=== PATIENT | female | born 2000 | race Two or more races ===

== ENCOUNTER → 2021-09-21 | Outpatient (CLI) | payer MEDICAID ==
[2021-09-21 11:57] LABS: Basophils # (auto) 0 10 ^3/uL (0-0.2); Eosinophils # (auto) 0.1 10 ^3/uL (0-0.8); Monocytes # (auto) 0.6 10 ^3/uL (0-1.3)
[2021-09-21 12:01] LABS: Basophils % (auto) 0.3 % (0.0-2.0); Eosinophils % (auto) 0.4 % (0.0-7.0); Hematocrit 38.3 % (36.0-46.0); Hemoglobin 12.8 g/dL (12.2-16.2); Lymphocytes # (auto) 3.1 10 ^3/uL (0.4-5.4); Lymphocytes % (auto) 22.7 % (10.0-50.0); Mean Corpuscular Hemoglobin 24.9 pg (28.0-32.0); Mean Corpuscular Hgb Conc. 33.3 g/dL (32.0-36.0); Mean Corpuscular Volume 74.8 fL (80.0-100.0); Monocytes % (auto) 4.2 % (0.0-12.0); Neutrophils # (auto) 9.9 10 ^3/uL (1.6-8.6); Neutrophils % (auto) 72.4 % (37.0-80.0); Red Blood Cells 5.12 10^6/uL (4.0-5.20); Red Cell Distribution Width 14.6 % (11.8-14.3); White Blood Cell 13.6 10^3/uL (4.4-10.8)
[2021-09-21 12:34] LABS: Alcohol, Urine < 3.0 mg/dL (0-10); Amphetamine Screen, Urine NEGATIVE (NEGATIVE); Barbiturate Scree,Urine NEGATIVE (NEGATIVE); Benzodiazephine Screen, Urine NEGATIVE (NEGATIVE); Cannabinoid Screen, Urine POSITIVE (NEGATIVE); Cocaine Screen, Urine NEGATIVE (NEGATIVE); Opiate Scree,Urine NEGATIVE (NEGATIVE); Phencyclidine Screen, Urine NEGATIVE (NEGATIVE)
[2021-09-22 07:06] LABS: RPR Non Reactive (Non Reactive)
== END | disposition home or self-care (01) ==
LOC: LAB 11:12
PROVIDERS: ATTEND Obstetrics & Gynecology
DX: Z34.00 Encounter for supervision of normal first pregnancy, unspecified trimester (principal); Z31.430 Encounter of female for testing for genetic disease carrier status for procreative management; Z36.0 Encounter for antenatal screening for chromosomal anomalies; N39.0 Urinary tract infection, site not specified
CPT/HCPCS: 36415; 80307; 83021; 83036; 84112; 84702; 85025; 85660; 86592; 86703; 86762; 86850; 86900; 86901; 87086; 87340

== ENCOUNTER 2022-01-15 19:24 | Observation (INO) | payer MEDICAID ==
[~2022-01-15] VITALS: Ht 162.6 cm; Wt 106.6 kg
[2022-01-15] MEDS ORDERED: TERBUTALINE SULFATE 1 MG/ML 1ML VIAL SC SCH (20:45)
[2022-01-15] MEDS ORDERED: LACTATED RINGER'S 1,000 ML IV ONE (20:45)
[2022-01-15] MEDS ORDERED: BETAMETHASONE ACET (30mg/5ml) 5ml Vial 6mg/ml IM ONE (20:45)
[2022-01-15] MEDS ORDERED: LACTATED RINGER'S 1,000 ML IV SCH (20:45)
[2022-01-15 20:52] LABS: Urine Bacteria NONE SEEN /hpf (None Seen); Urine Blood Negative /uL (Negative); Urine Mucus FEW (None Seen); Urine Specific Gravity 1.026 (1.001-1.035); Urine WBC 1 /hpf (0 - 5)
[2022-01-15] MEDS ORDERED: ONDANSETRON HCL 4 MG/2 ML VIAL IV ONE (21:15)
[2022-01-16] MEDS ORDERED: NIFEdipine 10 MG CAP PO SCH
[2022-01-16] MEDS ORDERED: NIF10C PO (01:07)
[2022-01-16] MEDS ORDERED: PREN27TA7 OR (21:06)
== END 2022-01-16 01:44 | disposition home or self-care (01) ==
LOC: LDRP 19:24
PROVIDERS: ADMIT Obstetrics & Gynecology; ATTEND Obstetrics & Gynecology
DX: O60.03 Preterm labor without delivery, third trimester (principal); O62.9 Abnormality of forces of labor, unspecified; O21.2 Late vomiting of pregnancy; O26.893 Other specified pregnancy related conditions, third trimester; R42 Dizziness and giddiness; Z3A.30 30 weeks gestation of pregnancy; Z98.891 History of uterine scar from previous surgery
CPT/HCPCS: 36415; 59025; 76815; 81001; 81002; 87426; 94760; 96361; 96372; 96374; G0378; J0702; J2405; J3105; 96360

== ENCOUNTER 2022-01-16 20:29 | Observation (INO) | payer MEDICAID ==
[~2022-01-16] VITALS: Ht 162.6 cm; Wt 108.0 kg
[~2022-01-16 20:29] MED LIST: NIF10C PO
[2022-01-16] MEDS ORDERED: BETAMETHASONE ACET (30mg/5ml) 5ml Vial 6mg/ml IM ONE (21:00)
[2022-01-16] MEDS ORDERED: PREN27TA7 OR (21:06)
== END 2022-01-16 22:07 | disposition home or self-care (01) ==
LOC: LDRP 20:29
PROVIDERS: ADMIT Obstetrics & Gynecology Obstetrics; ATTEND Obstetrics & Gynecology Obstetrics
DX: O60.03 Preterm labor without delivery, third trimester (principal); Z3A.30 30 weeks gestation of pregnancy; Z88.0 Allergy status to penicillin
CPT/HCPCS: 59025; 81002; 94760; 96372; G0378

== ENCOUNTER 2022-01-17 16:28 | Observation (INO) | payer MEDICAID ==
[~2022-01-17] VITALS: Ht 162.6 cm; Wt 108.9 kg
[~2022-01-17 16:28] MED LIST changes: +PREN27TA7 OR
[2022-01-17 19:18] LABS: Basophils # (auto) 0 10 ^3/uL (0-0.2); Basophils % (auto) 0.1 % (0.0-2.0); Eosinophils # (auto) 0 10 ^3/uL (0-0.8); Eosinophils % (auto) 0.2 % (0.0-7.0)
[2022-01-17 19:19] LABS: Hematocrit 36.6 % (36.0-46.0); Hemoglobin 12.6 g/dL (12.2-16.2); Lymphocytes # (auto) 2.6 10 ^3/uL (0.4-5.4); Lymphocytes % (auto) 14.4 % (10.0-50.0); Mean Corpuscular Hemoglobin 24.2 pg (28.0-32.0); Mean Corpuscular Hgb Conc. 34.4 g/dL (32.0-36.0); Mean Corpuscular Volume 70.3 fL (80.0-100.0); Monocytes # (auto) 1.7 10 ^3/uL (0-1.3); Monocytes % (auto) 9.3 % (0.0-12.0); Neutrophils # (auto) 13.7 10 ^3/uL (1.6-8.6); Nucleated Red Blood Cells % 0.1 %; Red Cell Distribution Width 16.7 % (11.8-14.3)
[2022-01-17 19:36] LABS: Urine Bacteria FEW /hpf (None Seen); Urine WBC 1 /hpf (0 - 5)
[2022-01-17 19:36] LABS: Albumin 2.8 g/dL (3.4-5.0); Potassium 3.8 mmol/L (3.5-5.1)
[2022-01-17 19:37] LABS: Protein, Urine < 5 mg/dL (0.0-11.9)
[2022-01-17 19:40] LABS: BUN/Creatinine Ratio 12.8; Bilirubin, Total 0.2 mg/dL (0.2-1.0); Total Protein 6.7 g/dL (6.4-8.2); Uric Acid 4.4 mg/dL (2.6-6.0)
[2022-01-17 19:47] LABS: Creatinine, Urine 9 mg/dL (30.0-125.0)
[2022-01-17 19:53] LABS: Urine Specific Gravity 1.005 (1.001-1.035)
[2022-01-17 19:54] LABS: Urine Blood Negative /uL (Negative)
== END 2022-01-17 21:27 | disposition home or self-care (01) ==
LOC: LDRP 16:28 → UNDOADMOB 16:28 → LDRP 17:05 → UNDODISOB 21:27
PROVIDERS: ADMIT Obstetrics & Gynecology; ATTEND Obstetrics & Gynecology
DX: O26.893 Other specified pregnancy related conditions, third trimester (principal); R10.11 Right upper quadrant pain; R51.9 Headache, unspecified; R11.0 Nausea; O62.9 Abnormality of forces of labor, unspecified; Z3A.30 30 weeks gestation of pregnancy
CPT/HCPCS: 36415; 59025; 76700; 80053; 81001; 81002; 82570; 84156; 84550; 85025; 94760; G0378

== ENCOUNTER → 2022-03-15 | Outpatient (CLI) | payer MEDICAID ==
[2022-03-15 11:15] LABS: Basophils # (auto) 0.1 10 ^3/uL (0-0.2); Basophils % (auto) 0.8 % (0.0-2.0); Eosinophils # (auto) 0.1 10 ^3/uL (0-0.8); Hemoglobin 12.5 g/dL (12.2-16.2); Nucleated Red Blood Cells % 0.1 %; White Blood Cell 14.9 10^3/uL (4.4-10.8)
[2022-03-15 11:17] LABS: Eosinophils % (auto) 0.7 % (0.0-7.0); Hematocrit 36.3 % (36.0-46.0); Lymphocytes # (auto) 3.6 10 ^3/uL (0.4-5.4); Lymphocytes % (auto) 24.1 % (10.0-50.0); Mean Corpuscular Hemoglobin 23.7 pg (28.0-32.0); Mean Corpuscular Hgb Conc. 34.4 g/dL (32.0-36.0); Monocytes # (auto) 1.1 10 ^3/uL (0-1.3); Monocytes % (auto) 7.2 % (0.0-12.0); Neutrophils % (auto) 67.2 % (37.0-80.0); Red Blood Cells 5.25 10^6/uL (4.0-5.20); Red Cell Distribution Width 18.7 % (11.8-14.3)
[2022-03-16 07:06] LABS: RPR Non Reactive (Non Reactive)
== END | disposition home or self-care (01) ==
LOC: LAB 10:51
PROVIDERS: ATTEND Obstetrics & Gynecology
DX: Z34.80 Encounter for supervision of other normal pregnancy, unspecified trimester (principal); Z3A.00 Weeks of gestation of pregnancy not specified
CPT/HCPCS: 36415; 84112; 85025; 86592

== ENCOUNTER 2022-03-17 10:19 | Inpatient (IN) | payer MEDICAID ==
[2022-03-16 11:35] LABS: Basophils # (auto) 0 10 ^3/uL (0-0.2); Basophils % (auto) 0.2 % (0.0-2.0); Eosinophils # (auto) 0.1 10 ^3/uL (0-0.8); Monocytes # (auto) 0.7 10 ^3/uL (0-1.3); Nucleated Red Blood Cells % 0.2 %
[2022-03-16 11:37] LABS: Hematocrit 35.4 % (36.0-46.0); Hemoglobin 12.4 g/dL (12.2-16.2); Lymphocytes # (auto) 3.2 10 ^3/uL (0.4-5.4); Lymphocytes % (auto) 25.9 % (10.0-50.0); Mean Corpuscular Hgb Conc. 34.9 g/dL (32.0-36.0); Mean Corpuscular Volume 74.5 fL (80.0-100.0); Monocytes % (auto) 5.7 % (0.0-12.0); Neutrophils # (auto) 8.3 10 ^3/uL (1.6-8.6); Neutrophils % (auto) 67.2 % (37.0-80.0); Red Blood Cells 4.75 10^6/uL (4.0-5.20); Red Cell Distribution Width 18.5 % (11.8-14.3); White Blood Cell 12.3 10^3/uL (4.4-10.8)
[2022-03-16 11:38] LABS: Alcohol, Urine < 3.0 mg/dL (0-10); Amphetamine Screen, Urine NEGATIVE (NEGATIVE); Barbiturate Scree,Urine NEGATIVE (NEGATIVE); Benzodiazephine Screen, Urine NEGATIVE (NEGATIVE); Cannabinoid Screen, Urine NEGATIVE (NEGATIVE); Cocaine Screen, Urine NEGATIVE (NEGATIVE); Opiate Scree,Urine NEGATIVE (NEGATIVE); Phencyclidine Screen, Urine NEGATIVE (NEGATIVE)
[2022-03-16 11:40] LABS: Urine Bacteria NONE SEEN /hpf (None Seen); Urine Blood Negative /uL (Negative); Urine Mucus FEW (None Seen); Urine Specific Gravity 1.025 (1.001-1.035); Urine WBC <1 /hpf (0 - 5)
[2022-03-16 11:42] LABS: INR 0.88 (0.9-1.15); Partial Thromboplastin Time 26.5 sec (24.6-33.4)
[2022-03-16 11:44] LABS: Albumin 2.6 g/dL (3.4-5.0); BUN/Creatinine Ratio 20.4; Calcium 8.8 mg/dL (8.5-10.1); Potassium 3.9 mmol/L (3.5-5.1)
[2022-03-16 11:47] LABS: Bilirubin, Total 0.2 mg/dL (0.2-1.0); Total Protein 6.5 g/dL (6.4-8.2)
[~2022-03-17] VITALS: Ht 162.6 cm; Wt 113.4 kg
[2022-03-17 08:06] LABS: RPR Non Reactive (Non Reactive)
[2022-03-18] VITALS (13 sets, daily range): BP systolic 129–145; BP diastolic 62–96
[2022-03-18] MEDS ORDERED: LACTATED RINGER'S 1,000 ML IV ONE (04:15)
[2022-03-18] MEDS: LACTATED RINGER'S 1,000 ML IV SCH ×2 (05:33→19:18)
[2022-03-18] MEDS ORDERED: ceFAZolin 1GM/50ML 50 ML IV ONE (06:30)
[2022-03-18] MEDS ORDERED: CLINDAMYCIN 900MG IV 50 ML IV ONE (07:30)
[2022-03-18] MEDS: SODIUM CITR/CITRIC ACID ORAL SOLN 30 ML PO SCH ×3 (08:13→18:00)
[2022-03-18] MEDS ORDERED: HYDR-4902 PO (08:25)
[2022-03-18] MEDS ORDERED: DOCU-94 PO (08:25)
[2022-03-18] MEDS ORDERED: IBUP800T27 PO (08:25)
[2022-03-18] MEDS ORDERED: oxyTOCIN 10 UNIT/ML 10ML VIAL ONE (09:14)
[2022-03-18] MEDS ORDERED: ONDANSETRON HCL 4 MG/2 ML VIAL ONE (09:14)
[2022-03-18] MEDS ORDERED: MORPHINE SULF PF 5 MG/10 ML VIAL ONE (09:14)
[2022-03-18] MEDS ORDERED: fentaNYL CITRATE 100 MCG/2 ML VL ONE (09:14)
[2022-03-18] MEDS ORDERED: BUPIVACAINE/DEXTROSE MPF 0.75% 2 ML AMP IT ONE (09:14)
[2022-03-18] MEDS ORDERED: ePHEDrine SULFATE 50 MG/ML AMP ONE (09:14)
[2022-03-18] MEDS ORDERED: LACT. RINGERS/OXYTOCIN 20UNITS 1,000 ML IV ONE (09:30)
[2022-03-18] MEDS ORDERED: GUM (CHEWING) 1 GUM CHEW CHEW ONE (09:30)
[2022-03-18] MEDS ORDERED: ONDANSETRON HCL 4 MG/2 ML VIAL IV PRN ×3 (09:30→11:00)
[2022-03-18] MEDS ORDERED: FAMOTIDINE (10MG/ML) 2ML VL IV ONE (10:20)
[2022-03-18] MEDS ORDERED: KETOROLAC TROMETH 30 MG/ML 1ML VIAL IV PRN (11:00)
[2022-03-18] MEDS ORDERED: DexAMETHasone SOD PHOS 10MG/1ML VIAL INJ IV PRN (11:00)
[2022-03-18] MEDS ORDERED: FAMOTIDINE (10MG/ML) 2ML VL IV PRN (11:00)
[2022-03-18] MEDS ORDERED: NALBUPHINE HCL 10 MG/1ml INJECTION SUBCUT ONE (11:00)
[2022-03-18] MEDS ORDERED: NALOXONE HCL 0.4 MG/ML VIAL IV PRN ×2 (11:00)
[2022-03-18] MEDS ORDERED: diphenhdrAMINE HCL 50 MG/1 ML VL IV PRN (11:00)
[2022-03-18] MEDS ORDERED: KETOROLAC TROMETH 30 MG/ML 1ML VIAL IV ONE (11:00)
[2022-03-18] MEDS: ACETAMINOPHEN IV 1000 MG/100ML (10MG/ML) IV PRN ×2 (14:08→22:06)
[2022-03-18 14:21] LABS: Protein, Urine 11.5 mg/dL (0.0-11.9)
[2022-03-18] MEDS: CLINDAMYCIN 900MG IV 50 ML IV SCH (17:41)
[2022-03-18 21:11] LABS: Basophils # (auto) 0 10 ^3/uL (0-0.2); Basophils % (auto) 0.1 % (0.0-2.0); Eosinophils # (auto) 0.1 10 ^3/uL (0-0.8); Eosinophils % (auto) 0.4 % (0.0-7.0); Hemoglobin 10.8 g/dL (12.2-16.2)
[2022-03-18 21:13] LABS: Hematocrit 31.6 % (36.0-46.0); Lymphocytes # (auto) 2.4 10 ^3/uL (0.4-5.4); Mean Corpuscular Hemoglobin 23.6 pg (28.0-32.0); Mean Corpuscular Hgb Conc. 34.1 g/dL (32.0-36.0); Mean Corpuscular Volume 69.3 fL (80.0-100.0); Monocytes # (auto) 1.4 10 ^3/uL (0-1.3); Monocytes % (auto) 8.3 % (0.0-12.0); Neutrophils % (auto) 77.2 % (37.0-80.0); Nucleated Red Blood Cells % 0.2 %; Red Blood Cells 4.57 10^6/uL (4.0-5.20); Red Cell Distribution Width 18.3 % (11.8-14.3); White Blood Cell 16.8 10^3/uL (4.4-10.8)
[2022-03-19] VITALS (13 sets, daily range): BP systolic 102–145; BP diastolic 56–89
[2022-03-19] MEDS: CLINDAMYCIN 900MG IV 50 ML IV SCH (02:12)
[2022-03-19] MEDS: LACTATED RINGER'S 1,000 ML IV SCH ×2 (04:15→06:54)
[2022-03-19] MEDS ORDERED: HYDROcodone-ACET 5/325MG TAB PO PRN (05:45)
[2022-03-19] MEDS: SIMETHICONE 80 MG CHEWABLE TABLET PO SCH ×4 (05:52→22:24)
[2022-03-19 06:29] LABS: Basophils # (auto) 0.1 10 ^3/uL (0-0.2); Eosinophils # (auto) 0.1 10 ^3/uL (0-0.8); Eosinophils % (auto) 0.9 % (0.0-7.0); Hemoglobin 10.6 g/dL (12.2-16.2); Monocytes # (auto) 1.3 10 ^3/uL (0-1.3)
[2022-03-19 06:31] LABS: Basophils % (auto) 0.5 % (0.0-2.0); Hematocrit 31.3 % (36.0-46.0); Lymphocytes % (auto) 13.1 % (10.0-50.0); Mean Corpuscular Hemoglobin 24.1 pg (28.0-32.0); Mean Corpuscular Hgb Conc. 33.7 g/dL (32.0-36.0); Mean Corpuscular Volume 71.5 fL (80.0-100.0); Monocytes % (auto) 8.5 % (0.0-12.0); Neutrophils # (auto) 11.6 10 ^3/uL (1.6-8.6); Red Blood Cells 4.38 10^6/uL (4.0-5.20); Red Cell Distribution Width 18.7 % (11.8-14.3); White Blood Cell 15.1 10^3/uL (4.4-10.8)
[2022-03-19] MEDS ORDERED: ACETAMINOPHEN IV 1000 MG/100ML (10MG/ML) IV PRN (06:45)
[2022-03-19] MEDS ORDERED: CLINDAMYCIN 900MG IV 50 ML IV SCH (10:00)
[2022-03-19] MEDS: IBUPROFEN 800 MG TAB PO PRN (10:24)
[2022-03-19] MEDS: DOCUSATE CALCIUM 240 MG CAP PO SCH (10:24)
[2022-03-19] MEDS: DOCUSATE SOD 100 MG CAP PO SCH ×2 (10:24→22:24)
[2022-03-19] MEDS: HYDROcodone-ACET 5/325MG TAB PO PRN ×2 (17:37→22:24)
[2022-03-19] MEDS ORDERED: BISACODYL 10 MG RECT SUPP PR PRN (18:45)
[2022-03-20] MEDS: IBUPROFEN 800 MG TAB PO PRN (02:48)
[2022-03-20 03:07] VITALS: BP 143/77
[2022-03-20] MEDS: SIMETHICONE 80 MG CHEWABLE TABLET PO SCH (05:50)
[2022-03-20 07:15] VITALS: BP 127/77
[2022-03-20] MEDS: DOCUSATE SOD 100 MG CAP PO SCH (10:30)
[2022-03-20] MEDS: DOCUSATE CALCIUM 240 MG CAP PO SCH (10:30)
== END 2022-03-20 11:05 | disposition home or self-care (01) | DRG 540 ==
LOC: LDRP 03-18 04:05
PROVIDERS: ADMIT Obstetrics & Gynecology; ATTEND Obstetrics & Gynecology
PROC: 10D00Z1 Extraction of Products of Conception, Low, Open Approach (ICD-10-PCS; principal; 2022-03-18 09:22)
DX: O34.219 Maternal care for unspecified type scar from previous cesarean delivery (principal); O99.214 Obesity complicating childbirth; E66.01 Morbid (severe) obesity due to excess calories; Z20.822 Contact with and (suspected) exposure to COVID-19; Z37.0 Single live birth
CPT/HCPCS: 36415; 59025; 80053; 80307; 81001; 81002; 82570; 84156; 84550; 85025; 85610; 85730; 86592; 86850; 86900; 86901; 94760; 94762; 96360; 96361; 96365; 96366; G0378; J0131; J2405; J2590; J3490

== ENCOUNTER → 2022-04-14 | Outpatient (CLI) | payer MEDICAID ==
[~2022-04-14] MED LIST changes: +DOCU-94 PO; +HYDR-4902 PO; +IBUP800T27 PO
[2022-04-14 11:26] LABS: Urine Bacteria NONE SEEN /hpf (None Seen); Urine Blood Negative /uL (Negative); Urine Mucus FEW (None Seen); Urine Specific Gravity 1.027 (1.001-1.035); Urine WBC 4 /hpf (0 - 5)
== END | disposition home or self-care (01) ==
LOC: LAB 10:44
PROVIDERS: ATTEND Obstetrics & Gynecology
DX: N39.0 Urinary tract infection, site not specified (principal)
CPT/HCPCS: 81001; 87086